=== PATIENT | female | born 1940 | race Caucasian/White ===

== ENCOUNTER 2021-09-19 12:13 | Emergency (ER) | payer OTHER ==
[~2021-09-19] VITALS: Ht 165.1 cm; Wt 79.5 kg
[2021-09-19] MEDS ORDERED: diltiazem 5mg/ml 5ml inj. IV ONE ×2 (15:05→15:45)
[2021-09-19] MEDS ORDERED: normal saline 1000ml 1,000 ML IV ONE (15:05)
[2021-09-19 15:46] LABS: BASOPHILS # (AUTO) 0.1 X10'3 (0-0.2); BASOPHILS % (AUTO) 0.7 % (0-1); EOSINOPHILS # (AUTO) 0.1 X10'3 (0-0.9); EOSINOPHILS % (AUTO) 1.7 % (0-6); HEMOGLOBIN 12.8 g/dl (12.0-16.0); LYMPHOCYTES # (AUTO) 2.9 X10'3 (1.1-4.8); LYMPHOCYTES % (AUTO) 35.6 % (21-51); MEAN CORPUSCULAR HEMOGLOBIN 29.8 PG (27.0-31.0); MEAN CORPUSCULAR HGB CONC 33.7 g/dL (33.0-36.5); MEAN CORPUSCULAR VOLUME 88.7 FL (78-98); MEAN PLATELET VOLUME 9.3 FL (7.4-10.4); MONOCYTES # (AUTO) 0.7 X10'3 (0-0.9); MONOCYTES % (AUTO) 9.3 % (2-12); NEUTROPHILS # (AUTO) 4.2 X10'3 (1.8-7.7); NEUTROPHILS % (AUTO) 52.7 % (42-75); PLATELET COUNT 293 X10'3 (140-440); RED BLOOD COUNT 4.28 X10'6 (4.20-5.60)
[2021-09-19 15:54] LABS: ALANINE AMINOTRANSFERASE 26 U/L (12-78); ALKALINE PHOSPHATASE 85 IU/L (46-116); ANION GAP 12 (8-16); ASPARTATE AMINO TRANSFERASE 20 U/L (10-37); BILIRUBIN,TOTAL 0.3 MG/DL (0.1-1.0); BLOOD UREA NITROGEN 11 MG/DL (7-18); CALCIUM 9.6 MG/DL (8.5-10.1); CHLORIDE 107 MMOL/L (99-107); CREATININE 0.92 MG/DL (0.40-0.90); GLUCOSE 102 MG/DL (70-104); SODIUM 146 MMOL/L (135-145); TOTAL CARBON DIOXIDE 26.8 MMOL/L (24-32); eGFR 59 ML/MIN
[2021-09-19 16:01] LABS: MAGNESIUM 2.2 MG/DL (1.5-2.4)
[2021-09-19] MEDS: metoprolol tartrate 1mg/ml inj IV SCH ×3 (16:45→18:07)
[2021-09-19] MEDS ORDERED: etomidate 2mg/ml inj. IV ONE (17:15)
--- NOTE | 2021-09-19 18:14 | NUR ---
1807 PATIENT WAS SEDATED WITH ETOMIDATE 10 MG IVP. [address] TESFAYE WITH 100 J PATIENT CONVERTED TO NSRWITH HR 77/MIN. 1815 PATIENT EASILY AROUSABLE WITH BASELINE VITAL SIGNS.
[2021-09-19] MEDS ORDERED: metoprolol succinate 25mg (24-HOUR) SR. Tablet PO ONE (18:15)
[2021-09-19 18:54] VITALS: BP 126/66
== END 2021-09-19 18:56 | disposition home or self-care (01) ==
LOC: ER 12:14
DX: I48.91 Unspecified atrial fibrillation (principal); R07.89 Other chest pain; I48.92 Unspecified atrial flutter; E78.00 Pure hypercholesterolemia, unspecified
CPT/HCPCS: 36415; 71045; 80053; 83735; 83880; 84484; 85025; 85610; 92960; 94799; 96361; 96374; 96375; 99285; J3490; J7030; 94760